=== PATIENT | female | born 1995 | race African-American/Black ===

== ENCOUNTER 2017-01-07 04:19 | Emergency (ER) | payer OTHER ==
[~2017-01-07] VITALS: Ht 175.3 cm; Wt 86.2 kg
[2017-01-07 05:25] VITALS: BP 120/80
== END 2017-01-07 05:27 | disposition home or self-care (01) ==
LOC: ER 04:19
DX: S01.511A Laceration without foreign body of lip, initial encounter (principal); Y00.XXXA Assault by blunt object, initial encounter; Y93.89 Activity, other specified; Y92.89 Other specified places as the place of occurrence of the external cause; Y99.8 Other external cause status